=== PATIENT | male | born 1985 | race Caucasian/White ===

== ENCOUNTER 2019-05-27 07:35 | Outpatient (CLI) | payer MEDICAID ==
[2019-05-27 12:34] LABS: BASOPHILS % (AUTO) 0.5 %; EOSINOPHILS # (AUTO) 0.2 10^3/uL (0.0-0.7); EOSINOPHILS % (AUTO) 1.9 %; HGB - HEMOGLOBIN 15.4 g/dL (14.0-18.0); LYMPHOCYTES # (AUTO) 1.5 10^3/uL (1.5-3.5); LYMPHOCYTES % (AUTO) 18.3 %; MEAN CORPUSCULAR HEMOGLOBIN 29.3 pg (27.0-31.0); MEAN CORPUSCULAR HGB CONC 33.1 g/dL (32.0-36.0); MEAN CORPUSCULAR VOLUME 88.4 fL (80.0-94.0); MEAN PLATELET VOLUME 11.6 fL (7.4-11.4); MONOCYTES # (AUTO) 0.7 10^3/uL (0.0-1.0); MONOCYTES % (AUTO) 8.5 %; NEUTROPHILS # (AUTO) 5.9 10^3/uL (1.5-6.6); NEUTROPHILS % (AUTO) 70.4 %; PLT - PLATELET COUNT 209 10^3/uL (130-450); RED BLOOD COUNT 5.26 10^6/uL (4.70-6.10); RED CELL DISTRIBUTION WIDTH 12.1 % (12.0-15.0); WHITE BLOOD COUNT 8.3 x10^3/uL (4.8-10.8)
[2019-05-27 12:54] LABS: HB2 TOTAL 16.6 g/dL; HEMOGLOBIN A1C 0.54 g/dL; HEMOGLOBIN A1C % 5.1 % (4.6-6.2)
[2019-05-27 12:59] LABS: ALBUMIN 4.3 g/dL (3.2-5.5); ALBUMIN/GLOBULIN RATIO 1.3 (1.0-2.2); ALKALINE PHOSPHATASE 80 IU/L (42-121); ALT ALANINE AMINOTRANSFERASE 57 IU/L (10-60); AST ASPARTATE AMINOTRANSFERASE 25 IU/L (10-42); BUN - BLOOD UREA NITROGEN 13 mg/dL (6-20); CALCIUM 9.2 mg/dL (8.5-10.3); CARBON DIOXIDE - CO2 29 mmol/L (21-32); CHLORIDE 103 mmol/L (101-111); CHOL/HDL RATIO 5.4 (<5.0); CHOLESTEROL 167 mg/dL; GFR - MDRD 87 (>89); GLUCOSE 106 mg/dL (70-100); HDL CHOLESTEROL 31 mg/dL; SODIUM 140 mmol/L (135-145); TOTAL PROTEIN 7.6 g/dL (6.7-8.2); URIC ACID 7.1 mg/dL (2.6-7.2)
[2019-05-27 13:22] LABS: LDL CHOLESTEROL,DIRECT 80 mg/dL; LDLD/HDL RATIO 2.6 (<3.6)
== END 2019-05-27 23:59 | disposition home or self-care (01) ==
LOC: LAB.WCP 07:35
PROVIDERS: ATTEND Physician Assistant
DX: E78.5 Hyperlipidemia, unspecified (principal); Z13.1 Encounter for screening for diabetes mellitus; M10.9 Gout, unspecified
CPT/HCPCS: 36415; 80053; 80061; 83036; 83721; 84550; 85025

== ENCOUNTER 2020-01-06 18:41 | Emergency (ER) | payer MEDICAID ==
[2020-01-06] MEDS ORDERED: SODIUM CHLORIDE 0.9% 1,000 ML IV STA (20:07)
[2020-01-06 20:17] LABS: BASOPHILS # (AUTO) 0.1 10^3/uL (0.0-0.1); EOSINOPHILS # (AUTO) 0.2 10^3/uL (0.0-0.7); EOSINOPHILS % (AUTO) 2.4 %; HGB - HEMOGLOBIN 15.8 g/dL (14.0-18.0); LYMPHOCYTES # (AUTO) 3.6 10^3/uL (1.5-3.5); MEAN CORPUSCULAR HEMOGLOBIN 30.9 pg (27.0-31.0); MEAN CORPUSCULAR HGB CONC 35.3 g/dL (32.0-36.0); MEAN CORPUSCULAR VOLUME 87.5 fL (80.0-94.0); MEAN PLATELET VOLUME 10.2 fL (7.4-11.4); MONOCYTES # (AUTO) 0.6 10^3/uL (0.0-1.0); MONOCYTES % (AUTO) 6.4 %; NEUTROPHILS # (AUTO) 4.4 10^3/uL (1.5-6.6); NEUTROPHILS % (AUTO) 49.9 %; PLT - PLATELET COUNT 237 10^3/uL (130-450); RED BLOOD COUNT 5.11 10^6/uL (4.70-6.10); RED CELL DISTRIBUTION WIDTH 12.4 % (12.0-15.0); WHITE BLOOD COUNT 8.9 x10^3/uL (4.8-10.8)
--- NOTE | 2020-01-06 20:29 | XRAY Report ---
Reason: Chest Pain Procedure Date: 01/06/2020 Accession Number: [id number] / [id number] Procedure: XR - Chest 1 View X-Ray CPT Code: 39723 Final Report FULL RESULT: PROCEDURE: Chest 1 View X-Ray INDICATIONS: Chest Pain TECHNIQUE: One view of the chest was acquired. COMPARISON: None FINDINGS: Surgical changes and devices: None. Lungs and pleura: No pleural effusions or pneumothorax. Lungs are clear. Mediastinum: Mediastinal contours appear normal. Heart size is normal. Bones and chest wall: No suspicious bony lesions. Overlying soft tissues appear unremarkable. IMPRESSION: No acute pulmonary process. Reviewed by: Jenifer Chen MD on 01/06/2020 8:24 PM PDT Approved by: Jenifer Chen MD on 01/06/2020 8:24 PM PDT Station ID: [id number]
[2020-01-06 20:31] LABS: ALBUMIN/GLOBULIN RATIO 1.1 (1.0-2.2); BILIRUBIN,TOTAL 0.7 mg/dL (0.2-1.0); CALCIUM 8.9 mg/dL (8.5-10.3); TOTAL PROTEIN 7.5 g/dL (6.7-8.2)
--- NOTE | 2020-01-06 20:37 | ED Physician Documentation ---
History of Present Illness - Stated complaint Stated Complaint: SOA/DIZZY - Chief complaint Chief Complaint: Resp - History obtained from History obtained from: Patient - History of Present Illness Timing: How many weeks ago (1-2) Pain level max: 0 Pain level now: 0 - Additonal information Additional information: Patient is a 34-year-old male presents to the emergency department stating that he has had intermittent dyspnea for the past week or 2. This comes and goes. Last for a few minutes at a time. He also intermittently feels lightheaded and dizzy. No palpitations. No chest pain. Nothing makes it better or worse. No fevers. No coughing. No vomiting. No changes to his medications. No recent t ravel. No antibiotics. Review of Systems Ten Systems: 10 systems reviewed and negative Constitutional: denies: Fever, Chills Ears: denies: Ear pain Nose: denies: Rhinorrhea / runny nose, Congestion Cardiac: denies: Chest pain / pressure, Palpitations Respiratory: reports: Dyspnea. denies: Cough GI: denies: Vomiting, Diarrhea Skin: denies: Rash Musculoskeletal: denies: Neck pain, Back pain Neurologic: denies: Headache PD PAST MEDICAL HISTORY - Past Medical History Past Medical History: Yes Cardiovascular: High cholesterol - Past Surgical History Past Surgical History: No - Allergies Allergies/Adverse Reactions: Allergies Allergy/AdvReac Type Severity Reaction Status Date / Time meloxicam AdvReac Dizziness Verified 01/06/20 18:50 tramadol AdvReac Hallucinati Verified 01/06/20 18:50 ons - Social History Does the pt smoke?: No Smoking Status: Never smoker Does the pt drink ETOH?: No Does the pt have substance abuse?: No - Immunizations Immunizations are current?: Yes - POLST Patient has POLST: No PD ED PE NORMAL - Vitals Vital signs reviewed: Yes - General General: Alert and oriented X 3, No acute distress, Well developed/nourished - HEENT HEENT: PERRL, Moist mucous membranes - Neck Neck: Supple, no meningeal sign - Cardiac Cardiac: RRR, Strong equal pulses - Respiratory Respiratory: No respiratory distress, Clear bilaterally - Abdomen Abdomen: Soft, Non tender, Non distended - Back Back: No CVA TTP, No spinal TTP - Derm Derm: Warm and dry - Extremities Extremities: No edema, No calf tenderness / cord - Neuro Neuro: Alert and oriented X 3, 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, No motor deficit, No sensory deficit, Normal speech - Psych Psych: Normal mood, Normal affect Results - Vitals Vitals: Vital Signs - 24 hr 01/06/20 01/06/20 01/06/20 18:50 19:10 20:39 Temperature 36.5 C 36.5 C 36.6 C Heart Rate 91 91 84 Respiratory 16 16 12 Rate Blood Pressure 154/90 H 154/90 H 154/85 H O2 Saturation 96 96 100 Oxygen O2 Source Room air - EKG (time done) 2020 Rate: Rate (enter#) (90) Rhythm: NSR [place]: RAD Intervals: Normal [place] QRS: Normal Ischemia: Normal ST segments - Labs Labs: Laboratory Tests 01/06/20 01/06/20 01/06/20 20:11 20:11 20:11 WBC 8.9 RBC 5.11 Hgb 15.8 Hct 44.7 MCV 87.5 MCH 30.9 MCHC 35.3 RDW 12.4 Plt Count 237 MPV 10.2 Neut # (Auto) 4.4 Lymph # (Auto) 3.6 [place] # (Auto) 0.6 Eos # (Auto) 0.2 Baso # (Auto) 0.1 Absolute Nucleated RBC 0.00 Nucleated RBC % 0.0 Sodium 141 Potassium 3.7 Chloride 106 Carbon Dioxide 24 Anion Gap 11.0 BUN 14 Creatinine 1.0 Estimated GFR (MDRD) 86 L Glucose 123 H Calcium 8.9 Total Bilirubin 0.7 AST 35 ALT 77 H Alkaline Phosphatase 66 Troponin I High Sens 2.3 Total Protein 7.5 Albumin 4.0 Globulin 3.5 Albumin/Globulin Ratio 1.1 Lipase 33 - Rads (name of study) Chest x-ray Radiology: Prelim report reviewed, EMP read contemporaneously, See rad report (No acute disease) CT PA Radiology: Prelim report reviewed, EMP read contemporaneously, See rad report (No pulmonary embolus. Lungs are clear) PD MEDICAL DECISION MAKING - ED course Complexity details: reviewed results, re-evaluated patient, considered differential, d/w patient ED course: Unclear etiology of the patient's symptoms. He did have right ventricular hypertrophy on his EKG, therefore a CT was performed to exclude a pulmonary embolus. No acute findings on CT. No acute lab abnormalities. Normal lung exam. We will have him follow-up with his doctor for further care. Was could be contributed to something such as pulmonary hypertension. He likely has sleep apnea as well and that could be contributing to symptoms as well. Patient counseled regarding signs and symptoms for which I believe and urgent re- evaluation would be necessary. Patient with good understanding of and agreement to plan and is comfortable going home at this time This document was made in part using voice recognition software. While efforts are made to proofread this document, sound alike and grammatical errors may occur. Departure - Departure Disposition: 01 Home, Self Care Clinical Impression: Dizziness Dyspnea Qualifiers: Dyspnea type: unspecified Qualified Code(s): R06.00 - Dyspnea, unspecified Condition: Good Instructions: ED Dyspnea Shortness of Breath Follow-Up: Caitlin Martinez PA [Primary Care Provider] - Within 1 week Comments: The cause of your symptoms is unclear today. Follow-up with your doctor for further care. Your testing does not reveal any acute abnormalities today. You do have evidence of right ventricular hypertrophy on your EKG and this should be further evaluated with your doctor.
[2020-01-06] MEDS ORDERED: IOVERSOL 320 100 ML VIAL IVP ONE ×2 (20:44→22:23)
--- NOTE | 2020-01-06 22:20 | CT Report ---
Reason: dyspnea, rvh on ekg Procedure Date: 01/06/2020 Accession Number: [id number] / [id number] Procedure: CT - ANGIO CHEST W/WO CPT Code: Final Report FULL RESULT: PROCEDURE: ANGIO CHEST W/WO INDICATIONS: dyspnea, rvh on ekg CONTRAST: IV CONTRAST: Optiray 320 ml: 68 PO CONTRAST: *NO PO CONTRAST TECHNIQUE: Noncontrast 2 mm thick sections acquired from the pulmonary apices to the posterior costophrenic angles. After the administration of intravenous contrast, 2mm thick sections acquired from the pulmonary apices to the posterior costophrenic angles. Oblique images were acquired. For radiation dose reduction, the following was used: automated exposure control, adjustment of mA and/or kV according to patient size. COMPARISON: None. FINDINGS: Image quality: Suboptimal evaluation of distal pulmonary artery branches. Lungs and pleura: No acute air space opacities. No pleural effusions or pneumothorax. Central and peripheral airways are patent and normal in caliber. Pulmonary arteries: No central pulmonary embolism. Distal branches are suboptimally evaluated secondary to artifact an injection. Mediastinum: Heart size is normal. No pericardial effusion. No mediastinal or hilar adenopathy by size criteria. Thoracic aorta and central pulmonary arteries are normal in size. Esophagus is normal in caliber. Mild hiatal hernia. Bones and chest wall: No suspicious bony lesions. No vertebral body compression fractures. No axillary or supraclavicular adenopathy by size criteria. Thyroid gland . Abdomen: Visualized upper abdominal solid organs appear normal. Upper abdominal bowel loops are normal in caliber. IMPRESSION: 1. No pulmonary embolism. 2. Lungs are clear. Reviewed by: Jenifer Chen MD on 01/06/2020 10:16 PM PDT Approved by: Jenifer Chen MD on 01/06/2020 10:16 PM PDT Station ID: [id number]
[2020-01-06 22:31] VITALS: BP 145/96
== END 2020-01-06 22:32 | disposition home or self-care (01) ==
LOC: ED 18:41
DX: R06.02 Shortness of breath (principal); R42 Dizziness and giddiness; I51.7 Cardiomegaly
CPT/HCPCS: 36415; 71045; 71275; 80053; 83690; 84484; 85025; 93005; 96360; 99284; Q9967

== ENCOUNTER 2020-01-08 08:00 | Outpatient (CLI) | payer MEDICAID | END 2020-01-08 08:01 | disposition home or self-care (01) | LOC: LAB.R 08:00 | PROVIDERS: ATTEND Nurse Practitioner Family | DX: R05 Cough (principal); R06.02 Shortness of breath; Z20.828 Contact with and (suspected) exposure to other viral communicable diseases | CPT/HCPCS: 81599 ==

== ENCOUNTER 2020-01-08 15:48 | Emergency (ER) | payer MEDICAID ==
[2020-01-08 16:41] LABS: BASOPHILS # (AUTO) 0.1 10^3/uL (0.0-0.1); BASOPHILS % (AUTO) 0.7 %; EOSINOPHILS # (AUTO) 0.1 10^3/uL (0.0-0.7); EOSINOPHILS % (AUTO) 1.9 %; HGB - HEMOGLOBIN 15.6 g/dL (14.0-18.0); LYMPHOCYTES # (AUTO) 2.7 10^3/uL (1.5-3.5); LYMPHOCYTES % (AUTO) 36.4 %; MEAN CORPUSCULAR HEMOGLOBIN 30.8 pg (27.0-31.0); MEAN CORPUSCULAR HGB CONC 35.8 g/dL (32.0-36.0); MEAN PLATELET VOLUME 10.4 fL (7.4-11.4); MONOCYTES # (AUTO) 0.5 10^3/uL (0.0-1.0); MONOCYTES % (AUTO) 6.5 %; PLT - PLATELET COUNT 213 10^3/uL (130-450); RED BLOOD COUNT 5.07 10^6/uL (4.70-6.10); RED CELL DISTRIBUTION WIDTH 12.2 % (12.0-15.0); WHITE BLOOD COUNT 7.4 x10^3/uL (4.8-10.8)
[2020-01-08] MEDS: ALBUTEROL 1 PUFF INH STA (16:41)
--- NOTE | 2020-01-08 16:54 | XRAY Report ---
Reason: chest pain Procedure Date: 01/08/2020 Accession Number: [id number] / [id number] Procedure: XR - Chest 1 View X-Ray CPT Code: 75405 Final Report FULL RESULT: PROCEDURE: Chest 1 View X-Ray INDICATIONS: chest pain TECHNIQUE: One view of the chest was acquired. COMPARISON: None FINDINGS: Surgical changes and devices: None. Lungs and pleura: No pleural effusions or pneumothorax. Lungs are clear. Mediastinum: Mediastinal contours appear normal. Heart size is normal. Bones and chest wall: No suspicious bony lesions. Overlying soft tissues appear unremarkable. IMPRESSION: No acute cardiopulmonary pathology. Reviewed by: Jason Brady MD on 01/08/2020 4:53 PM PDT Approved by: Jason Brady MD on 01/08/2020 4:53 PM PDT Station ID: [id number]
[2020-01-08] MEDS: DEXAMETHASONE 10 MG/ML VIAL IVP STA (17:06)
--- NOTE | 2020-01-08 17:51 | ED Physician Documentation ---
PD HPI DYSPNEA - Stated complaint Stated Complaint: SOA - Chief complaint Chief Complaint: Resp - History obtained from History obtained from: Patient - History of Present Illness Timing - onset: How many weeks ago (1) Timing - onset during: Light activity Timing - duration: Weeks (1) Timing - details: Gradual onset, Waxing and waning Inciting event(s): No: URI (but has had some nasal congestion and dry cough. No fevers. No history of asthma.) Improved by: Rest Worsened by: Exertion, Coughing Associated symptoms: Cough. No: Fever, Hemoptysis, Wheezing, Bilateral edema Recently seen: Emergency Dept (seen couple days ago for this and had labs/CXR/CT chest angio that were normal. No firm Dx nor meds. Seen by PCP office today for persistent symptoms and seemed short of breath with cough in office. Sats okay but office called EMS for patient to be seen here. Swabbed for COVID in office today, though had normal chest CT 2 days ago, which is clinically more sensitive and conclusive against pneumonia.) Review of Systems Constitutional: reports: Fatigue. denies: Fever, Chills, Myalgias Nose: denies: Rhinorrhea / runny nose, Congestion Throat: denies: Sore throat Cardiac: denies: Chest pain / pressure, Palpitations Respiratory: reports: Dyspnea, Cough. denies: Wheezing GI: denies: Abdominal Pain, Nausea, Vomiting, Diarrhea Musculoskeletal: denies: Extremity swelling Endocrine: denies: Weight gain PD PAST MEDICAL HISTORY - Past Medical History Past Medical History: Yes Cardiovascular: High cholesterol Respiratory: None Neuro: None Endocrine/Autoimmune: None GI: None : None HEENT: None Psych: None Musculoskeletal: Gout Derm: Other drug resistant infections - Past Surgical History Past Surgical History: No - Present Medications Home Medications: Ambulatory Orders Medication Instructions Recorded Confirmed Albuterol Sulfate [Albuterol 3 puffs IH QID #1 hfa.aer.ad 01/08/20 Sulfate Hfa] Atorvastatin [Lipitor] 01/08/20 Benzonatate [Tessalon Perle] 100 mg PO TID PRN #25 capsule 01/08/20 Colchicine 01/08/20 dexAMETHasone [Decadron] 4 mg PO DAILY #5 tablet 01/08/20 - Allergies Allergies/Adverse Reactions: Allergies Allergy/AdvReac Type Severity Reaction Status Date / Time meloxicam AdvReac Dizziness Verified 01/08/20 16:02 tramadol AdvReac Hallucinati Verified 01/08/20 16:02 ons - Social History Does the pt smoke?: No Smoking Status: Never smoker Does the pt drink ETOH?: No Does the pt have substance abuse?: No - Immunizations Immunizations are current?: Yes - POLST Patient has POLST: No PD ED PE NORMAL - Vitals Vital signs reviewed: Yes (sats good at 95%.) - General General: Alert and oriented X 3, No acute distress, Well developed/nourished - HEENT HEENT: Moist mucous membranes, Pharynx benign - Neck Neck: Supple, no meningeal sign, No adenopathy - Cardiac Cardiac: RRR, No murmur - Respiratory Respiratory: Clear bilaterally - Abdomen Abdomen: Soft, Non tender - Derm Derm: Normal color, Warm and dry - Extremities Extremities: No edema, No calf tenderness / cord - Neuro Neuro: Alert and oriented X 3, No motor deficit, Normal speech Results - Vitals Vitals: Vital Signs - 24 hr 01/08/20 01/08/20 01/08/20 16:04 16:51 18:08 Temperature 37.2 C 36.8 C Heart Rate 90 100 97 Respiratory 18 18 14 Rate Blood Pressure 129/81 H 135/76 H O2 Saturation 95 97 Oxygen O2 Source Room air - Labs Labs: Laboratory Tests 01/08/20 01/08/20 01/08/20 16:33 16:33 16:33 WBC 7.4 RBC 5.07 Hgb 15.6 Hct 43.6 MCV 86.0 MCH 30.8 MCHC 35.8 RDW 12.2 Plt Count 213 MPV 10.4 Neut # (Auto) 4.0 Lymph # (Auto) 2.7 [place] # (Auto) 0.5 Eos # (Auto) 0.1 Baso # (Auto) 0.1 Absolute Nucleated RBC 0.00 Nucleated RBC % 0.0 Troponin I High Sens < 2.3 L B-Natriuretic Peptide 7 - Rads (name of study) chest xray Radiology: Prelim report reviewed (clear), See rad report PD MEDICAL DECISION MAKING - ED course Complexity details: reviewed old records (from recent visit), reviewed results, re-evaluated patient (he did feel moderately improved with Albuterol MDI. ), considered differential (given recent ER visit with labs, CXR, CT-A chest, and still normal labs/CXR, I would presume some reactive airways. ), d/w patient Departure - Departure Disposition: 01 Home, Self Care Clinical Impression: Dyspnea Qualifiers: Dyspnea type: dyspnea on exertion Qualified Code(s): R06.00 - Dyspnea, un specified Condition: Stable Record reviewed to determine appropriate education?: Yes Instructions: ED Dyspnea Shortness of Breath Follow-Up: Caitlin Martinez PA [Primary Care Provider] - Prescriptions: Albuterol Sulfate [Albuterol Sulfate Hfa] 3 puffs IH QID #1 hfa.aer.ad Benzonatate [Tessalon Perle] 100 mg PO TID PRN #25 capsule PRN Reason: Cough dexAMETHasone [Decadron] 4 mg PO DAILY #5 tablet Comments: Stay well-hydrated. Your chest x-ray is clear again and still. No signs of pneumonia. No signs of heart failure. This combined with the tests from the other night showing normal blood count and no signs of blood clots etc. are reassuring. I am thinking the trouble breathing is related to airway irritation or inflammation and we can try some albuterol inhaler 3 puffs 4 times a day for the next several days to week and Decadron steroid for airway inflammation daily for 5 more days. To that add benzonatate if needed for cough. Recheck if not improved well over the next several days and return if worsening. Discharge Date/Time: 01/08/20 18:15
[2020-01-08 18:15] VITALS: BP 135/76
== END 2020-01-08 18:15 | disposition home or self-care (01) ==
LOC: EDBD → EDUNIT# → ED 15:48
DX: R06.00 Dyspnea, unspecified (principal); R05 Cough; R06.02 Shortness of breath; Z20.828 Contact with and (suspected) exposure to other viral communicable diseases
CPT/HCPCS: 36415; 71045; 81599; 83880; 84484; 85025; 94640; 94664; 99284

== ENCOUNTER 2020-02-05 08:42 | Outpatient (CLI) | payer MEDICAID | END 2020-02-05 08:43 | disposition home or self-care (01) | LOC: DI 08:42 | PROVIDERS: ATTEND Nurse Practitioner Family | DX: I51.7 Cardiomegaly (principal) | CPT/HCPCS: 93306 ==

== ENCOUNTER 2020-02-11 12:34 | Emergency (ER) | payer MEDICAID ==
--- NOTE | 2020-02-11 13:56 | ED Physician Documentation ---
PD HPI CHEST PAIN - Stated complaint Stated Complaint: CP - Chief complaint Chief Complaint: Cardiac - History obtained from History obtained from: Patient - History of Present Illness Timing - onset: Other Timing - details: Abrupt onset, Intermittant Pain level max: 2 Pain level now: 1 Quality: Pressure, Sharp Location: Substernal Associated symptoms: No: Shortness of air, Diaphoresis Similar symptoms before: Work up / diagnostics Recently seen: Clinic, Emergency Dept - Additional information Additional information: 34-year-old male presents to the emergency department with chief complaint of chest pain. Patient reports that he has had intermittent chest pain for about 2 months. And has been seen in this emergency department for similar recently. Patient states that he has a sharp substernal pain that does not radiate. It has been present since he woke up this morning. He sometimes feels a squeezing in his right chest. He is not sure if it gets worse with activity or ambulation. He denies any dyspnea. Patient had an echocardiogram completed on 04 February that was essentially normal. He has a pending referral to cardiology for follow-up. Patient denies any history of hypertension. He is not a smoker or diabetic. No primary family disease for early or sudden cardiac or disease No recent travel, no unilateral leg swelling. No history of cancer or DVT. Past medical history includes vitamin D deficiency, elevated cholesterol. meds: atorvastatin Review of Systems Constitutional: denies: Fever, Chills Nose: denies: Rhinorrhea / runny nose Cardiac: reports: Chest pain / pressure. denies: Palpitations, Pedal edema, Calf pain Respiratory: denies: Dyspnea, Cough, Hemoptysis, Wheezing GI: denies: Abdominal Pain, Abdominal Swelling, Nausea, Vomiting Skin: denies: Rash, Lesions Musculoskeletal: denies: Neck pain, Back pain Neurologic: denies: Generalized weakness, Difficulty speaking, Syncope, Seizure, Confused, Altered mental status, Unresponsive Psychiatric: denies: Depressed, Suicidal PD PAST MEDICAL HISTORY - Past Medical History Past Medical History: Yes Cardiovascular: High cholesterol Respiratory: None Neuro: None Endocrine/Autoimmune: None GI: None : None HEENT: None Psych: None Musculoskeletal: Gout Derm: Other drug resistant infections - Past Surgical History Past Surgical History: No - Present Medications Home Medications: Ambulatory Orders Medication Instructions Recorded Confirmed Albuterol Sulfate [Albuterol 3 puffs IH QID #1 hfa.aer.ad 01/08/20 Sulfate Hfa] Atorvastatin [Lipitor] 01/08/20 Benzonatate [Tessalon Perle] 100 mg PO TID PRN #25 capsule 01/08/20 Colchicine 01/08/20 dexAMETHasone [Decadron] 4 mg PO DAILY #5 tablet 01/08/20 - Allergies Allergies/Adverse Reactions: Allergies Allergy/AdvReac Type Severity Reaction Status Date / Time meloxicam AdvReac Dizziness Verified 01/08/20 16:02 tramadol AdvReac Hallucinati Verified 01/08/20 16:02 ons - Social History Does the pt smoke?: No Smoking Status: Never smoker Does the pt drink ETOH?: No Does the pt have substance abuse?: No - Immunizations Immunizations are current?: Yes - POLST Patient has POLST: No PD ED PE NORMAL - General General: Alert and oriented X 3, No acute distress, Well developed/nourished, Other (obese) - HEENT HEENT: PERRL, EOMI - Neck Neck: No bony TTP, No adenopathy - Cardiac Cardiac: RRR, No murmur - Respiratory Respiratory: No respiratory distress, Clear bilaterally - Abdomen Abdomen: Normal bowel sounds, Non tender - Rectal Rectal: Deferred - Back Back: No CVA TTP, No spinal TTP - Derm Derm: Normal color, No rash - Extremities Extremities: No deformity, Normal ROM s pain - Neuro Neuro: Alert and oriented X 3, 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, No motor deficit, No sensory deficit, Normal speech Eye Opening: Spontaneous Motor: Obeys Commands Verbal: Oriented GCS Score: 15 Results - Vitals Vitals: Vital Signs - 24 hr 02/11/20 02/11/20 12:42 13:47 Temperature 36.6 C 36.8 C Heart Rate 95 112 H Respiratory 16 16 Rate Blood Pressure 152/94 H 133/104 H O2 Saturation 97 96 Oxygen O2 Source Room air - EKG (time done) 1241 Rate: Rate (enter#) (91) Rhythm: NSR [place]: Normal Intervals: Normal [place] QRS: Normal Ischemia: Normal ST segments Computer interpretation: Agree with computer (no STEMI) - Labs Labs: Laboratory Tests 02/11/20 02/11/20 02/11/20 13:57 13:57 13:57 WBC 6.8 RBC 5.25 Hgb 16.0 Hct 45.6 MCV 86.9 MCH 30.5 MCHC 35.1 RDW 12.5 Plt Count 246 MPV 10.1 Neut # (Auto) 3.2 Lymph # (Auto) 2.7 [place] # (Auto) 0.6 Eos # (Auto) 0.2 Baso # (Auto) 0.1 Absolute Nucleated RBC 0.00 Nucleated RBC % 0.0 Sodium 139 Potassium 4.1 Chloride 105 Carbon Dioxide 26 Anion Gap 8.0 BUN 11 Creatinine 0.9 Estimated GFR (MDRD) 97 Glucose 104 H Calcium 9.2 Total Bilirubin 0.8 AST 34 ALT 84 H Alkaline Phosphatase 72 Troponin I High Sens < 2.3 L Total Protein 7.5 Albumin 4.1 Globulin 3.4 Albumin/Globulin Ratio 1.2 Lipase 54 H - Rads (name of study) CXR Radiology: Final report received (No acute cardiopulmonary process) PD MEDICAL DECISION MAKING - ED course Complexity details: reviewed old records, reviewed results, re-evaluated patient, considered differential, d/w patient ED course: 34-year-old gentleman presents to the emergency department with chief complaint of chest pain. - Patient has been seen for this before. Approximately 1 week ago he had an echocardiogram completed that showed mild LVH however there were no worrisome findings to suggest congestive heart failure or poor ejection fraction. - He has a consult pending with cardiology. - Today his high-sensitivity troponin is negative. His EKG is also nonischemic. His MCCLELLAN score is very low for risk of major adverse cardiac event. I discussed these findings with the Patient and he feels ready for discharge home. - My suspicion for PE is extremely low. His PERC score is negative. His wells score is also negative - Patient discharged home with emergent return precautions Departure - Departure Disposition: 01 Home, Self Care Clinical Impression: Chest pain Qualifiers: Chest pain type: unspecified Qualified Code(s): R07.9 - Chest pain, unspecified Condition: Stable Instructions: ED Chest Pain NonCardiac Follow-Up: Caitlin Martinez PA [Primary Care Provider] - Comments: Your cardiac labs today are normal. Your chest x-ray and EKG look good. I do not think that you are having a heart attack. However I do think it is important that you continue to follow-up with a digital project coordinator that you have been referred to. If you develop suddenly severe crushing chest pain, have any fevers, cannot breathe well, or any other emergent concerns please return to the emergency department.
--- NOTE | 2020-02-11 13:59 | XRAY Report ---
PROCEDURE: Chest 1 View X-Ray INDICATIONS: Chest pain TECHNIQUE: One view of the chest was acquired. COMPARISON: 01/08/2020 FINDINGS: Surgical changes and devices: None. Lungs and pleura: No pleural effusions or pneumothorax. Lungs are clear. Mediastinum: Mediastinal contours appear normal. Heart size is normal. Bones and chest wall: No suspicious bony lesions. Overlying soft tissues appear unremarkable. IMPRESSION: No acute cardiopulmonary disease process. Reviewed by: Felicia Terrell MD, PhD on 02/11/2020 1:58 PM PDT Approved by: Felicia Terrell MD, PhD on 02/11/2020 1:58 PM PDT Station ID: [id number]
[2020-02-11 14:02] LABS: BASOPHILS # (AUTO) 0.1 10^3/uL (0.0-0.1); BASOPHILS % (AUTO) 1.2 %; EOSINOPHILS # (AUTO) 0.2 10^3/uL (0.0-0.7); EOSINOPHILS % (AUTO) 2.7 %; LYMPHOCYTES # (AUTO) 2.7 10^3/uL (1.5-3.5); MEAN CORPUSCULAR HEMOGLOBIN 30.5 pg (27.0-31.0); MEAN CORPUSCULAR HGB CONC 35.1 g/dL (32.0-36.0); MEAN CORPUSCULAR VOLUME 86.9 fL (80.0-94.0); MEAN PLATELET VOLUME 10.1 fL (7.4-11.4); MONOCYTES # (AUTO) 0.6 10^3/uL (0.0-1.0); MONOCYTES % (AUTO) 8.6 %; NEUTROPHILS # (AUTO) 3.2 10^3/uL (1.5-6.6); NEUTROPHILS % (AUTO) 47.1 %; PLT - PLATELET COUNT 246 10^3/uL (130-450); RED BLOOD COUNT 5.25 10^6/uL (4.70-6.10); RED CELL DISTRIBUTION WIDTH 12.5 % (12.0-15.0); WHITE BLOOD COUNT 6.8 x10^3/uL (4.8-10.8)
[2020-02-11 14:15] LABS: ALBUMIN 4.1 g/dL (3.2-5.5); ALBUMIN/GLOBULIN RATIO 1.2 (1.0-2.2); BILIRUBIN,TOTAL 0.8 mg/dL (0.2-1.0); CALCIUM 9.2 mg/dL (8.5-10.3); CREATININE 0.9 mg/dL (0.6-1.2); TOTAL PROTEIN 7.5 g/dL (6.7-8.2)
[2020-02-11 15:17] VITALS: BP 126/93
== END 2020-02-11 15:18 | disposition home or self-care (01) ==
LOC: ED 12:34
DX: R07.9 Chest pain, unspecified (principal)
CPT/HCPCS: 36415; 71045; 80053; 83690; 84484; 85025; 93005; 99284

== ENCOUNTER 2020-02-12 08:49 | Outpatient (CLI) | payer MEDICAID ==
[2020-02-12 09:44] VITALS: BP 130/90
--- NOTE | 2020-02-12 09:44 | SLEEP CARE CONSULTATION ---
Information from patient questionnaire entered by Kasey Stone. I have reviewed and concur with the information entered by Kasey Stone. This document represents the service I personally performed and the decisions made by me, Morenita Kirkpatrick RN, MSN, [employer]. History of Present Illness Service Date and Time: 02/12/2020 0849 Reason for Visit: New patient, Other (diagnosed with mild apnea about 2 years ago in [facility]. He used CPAP for one year until it broke and thus disposed. He felt more rested with more energy during the day with CPAP use. ) Chief Complaint: reports: Unrefreshed sleep, Snoring, Excessive daytime sleepiness, Fatigue, Other (Sleep Apnea) Duration of Symptoms: 2 years Usual bedtime: 2200 Time it takes to fall asleep: 5 minutes Snores at night: Yes Observed to quit breathing while asleep: No Sleeps alone due to snoring: No Number of times waking at night: 3-5 Reasons for waking at night: reports: Gasping for air, Pain (lower back from spinal stenosis - plan is weight loss. ), Bathroom, Other (chest pain with fast heart rate recently started about a month ago/ nightly and has been to ER- enlarged left atrium - referral to cardiolgist) Toss, Turn, or Twitch while sleeping: No Recalls having dreams: No Usually gets out of bed at: 0800 Feels refreshed in the morning: No Morning headache: No Sleepy or fatigued during the day: Yes Ever fallen asleep while driving: No Takes day naps: Yes (daily for 2-4 hours the past month ) Dreams during day naps: No Prior sleep studies: Yes [facility] and Where: [facility] [place] Parasomnia Symptoms Ever been unable to move upon waking from sleep: No Walks in sleep: No Talks in sleep: No Ever acted out dreams in sleep: No Ever felt weak in the knees when startled or emotional: No Bothered by creepy, crawly, restless sensations in legs: No Problems with memory or concentration: Yes (noted decreased in past 2 years) Subjective Initial [place] Sleepiness Scale score: 8 Past Medical History Past Medical History: reports: Gout, Attention deficit, Other (spinal stenosis, high cholesterol, recent chest pain, dyspnea with enlarged atrium diagnosed past month) Social History 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 Patient is and lives in [place]. Have you smoked in the past 12 months: No Alcohol use: No Caffeine use: No Family History Family history of sleep disordered breathing: Yes Family Hx Sleep Apnea: Mother: Snoring, Father: Snoring Allergies and Home Medications Known drug allergies: Yes (see list ) Home medication list reviewed: Yes Allergy and home medication list: atorvastatin daily vitamin D 10,000 daily Calcium daily Iron 1 daily Review of Systems Weight gain over past 5 years: 50 Cardiovascular: reports: chest pain. denies: high blood pressure, palpitations, irregular heart rate or pulse, leg or foot swelling, have to sleep sitting up, other Respiratory: reports: shortness of breath. denies: wheeze, sputum production, chronic cough, other Gastrointestinal: denies: heartburn, difficulty swallowing, nausea, vomitting, diarrhea, abdominal pain, other Urinary: denies: incontinence, frequency, urgency, impotence, other Neurological: denies: headaches, seizure, head trauma, disorientation, speech dysfunction, gait or balance problems, fainting or unconsciousness, other Psychiatric: reports: Attention Deficit Hyperactivity, depression (past - no thoughts of hurting self or others) Ear/Nose/Throat: denies: nasal congestion, sinus problems, nose bleeds, dry mouth/throat, hoarseness, injury to nose, tonsillectomy, wisdom teeth removed, other Endocrine: denies: thyroid disease, history of goiter, sluggishness, too hot or cold, excessive thirst, increased appetite, increased urination, unexplained weakness, other Musculoskeletal: reports: back pain (daily). denies: joint pain, neck pain, joint swelling, muscle pain or cramping, mobility problems, other Immunologic: denies: sneezing, rash, itching, allergies to food or environment, other Physical Exam Blood Pressure: 130/90 Cuff size: long Heart Rate: 86 O2 Saturation: 95 Height: 6 ft 0.75 in Weight: 302 lb 12.8 oz Body Mass Index: 40.2 BMI Classification: Morbidly Obese Neck circumference: 19 HEENT: No craniofacial malformation Nostrils: patent to airflow Turbinates: normal Septum: midline Mouth and throat: narrow oropharynx Soft palate: long Hard palate: normal Uvula: normal Uvula visualization: 25% Mallampati Class III Tongue: normal in size Tonsils: small Neck: normal w/o lymphadenopathy or thyromegaly (thick neck ) Heart: regular rate and rhythm Lungs: clear bilaterally Abdomen: soft (large), non-tender Extremities: no edema or clubbing Impression and Plan 1. Suspected Obstructive Sleep Apnea-Hypopnea Syndrome, as previously diagnosed currently not treated due to CPAP malfunction a year ago and then disposed of. When he used CPAP for the first year he felt more rested with more energy during the day. Since machine broke, he has gained 20 pounds and symptoms became worse. Current history of loud and irregular snoring, gasping or choking in sleep, waking to chest pain and with gasping of breath nightly past month, unrefreshed sleep, cognitive impairment, and excessive daytime sleepiness. Narrow oropharynx and obesity are common predisposing factors for obstructive sleep apnea-hypopnea syndrome. I recommend proceeding to polysomnography to confirm the diagnosis and to assess severity or home sleep study if only authorized by his insurance. If the patient has significant sleep disordered breathing, a manual CPAP titration study will also be performed to find the optimal treatment pressure. I informed the patient of what the sleep studies involve and after some discussion, obtained agreement to proceed. The pathophysiology of obstructive sleep apnea- hypopnea syndrome was discussed with the patient and health risks of cardiovascular and cerebrovascular disease if not treated. Risks of drowsy driving discussed in detail and patient advised to avoid long distance driving and to hide puller at the first sign of drowsiness. Patient agreed to plan. He denies drowsy driving. * Schedule polysomnography * Avoid long distance driving or driving when feeling sleepy. * Avoid alcohol, sedative and muscle relaxant around bedtime. * Attempt to lose weight. * Review instructions provided by trained office staff on how to prepare for the sleep study. * Return for follow-up after sleep study completed. Visit Type: In Office Time Spent with Patient (minutes): 35 Provider Statement: I spent 100% of the Face to Face Visit with the patient with greater than 50% spent counseling the patient and coordination of care.
== END 2020-02-12 08:50 | disposition home or self-care (01) ==
LOC: SC 08:49
PROVIDERS: ATTEND Nurse Practitioner Family
DX: G47.10 Hypersomnia, unspecified (principal); G47.8 Other sleep disorders; R53.83 Other fatigue; R41.89 Other symptoms and signs involving cognitive functions and awareness; E66.01 Morbid (severe) obesity due to excess calories; Z68.41 Body mass index [BMI] 40.0-44.9, adult
CPT/HCPCS: 99203; 99212

== ENCOUNTER 2020-03-03 09:05 | Outpatient (CLI) | payer MEDICAID | END 2020-03-03 09:06 | disposition home or self-care (01) | LOC: RT 09:05 | PROVIDERS: ATTEND Nurse Practitioner Family | DX: R06.02 Shortness of breath (principal) | CPT/HCPCS: 94010 ==

== ENCOUNTER 2020-03-17 12:14 | Outpatient (CLI) | payer MEDICAID ==
--- NOTE | 2020-03-18 15:32 | XRAY Report ---
PROCEDURE: Finger(s) BILAT INDICATIONS: BILATERAL THUMB PAIN TECHNIQUE: AP hand, 3 views of the bilateral finger(s) acquired. COMPARISON: None FINDINGS: Bones: No fractures or dislocations. No suspicious bony lesions. Soft tissues: No suspicious soft tissue calcifications. IMPRESSION: No acute osseous process. No appreciable degenerative change. Reviewed by: Jenifer Chen MD on 03/17/2020 4:00 PM PDT Approved by: Jenifer Chen MD on 03/17/2020 4:00 PM PDT Station ID: [id number]
== END 2020-03-17 12:15 | disposition home or self-care (01) ==
LOC: DI.WCP 12:14
PROVIDERS: ATTEND Physician Assistant
DX: M79.645 Pain in left finger(s) (principal); M79.644 Pain in right finger(s)
CPT/HCPCS: 73140

== ENCOUNTER → 2020-03-23 | Outpatient (CLI) | payer MEDICAID | LOC: SC 19:30 | PROVIDERS: ATTEND Internal Medicine Pulmonary Disease | DX: G47.33 Obstructive sleep apnea (adult) (pediatric) (principal); E66.01 Morbid (severe) obesity due to excess calories; Z68.39 Body mass index [BMI] 39.0-39.9, adult | CPT/HCPCS: 95806 ==

== ENCOUNTER 2020-04-08 10:25 | Outpatient (CLI) | payer MEDICAID ==
--- NOTE | 2020-04-08 10:52 | SLEEP CARE CONSULTATION ---
Information from patient questionnaire entered by Lilibeth Dodson. I have reviewed and concur with the information entered by Lilibeth Dodson. This document represents the service I personally performed and the decisions made by , Kendra Lombardo ARNP. History of Present Illness Service Date and Time: 04/08/2020 1025 Initial [place] Sleepiness Scale score: 8 (in 2020) Current [place] Sleepiness Scale score: 12 Additional HPI information: EFREN SANZ returns for follow up and results of the recently performed home sleep study. He has very severe obstructive sleep apnea with an AHI of 81.9 with a zachary oxygen saturation of 84.5%. Patient has had previous study and did use CPAP therapy up until 1 year ago when he lost his machine while moving. We had to repeat sleep study for verification of his diagnosis and severity. We reviewed the pathophysiology behind obstructive sleep apnea. We then spent quite a bit of time discussing different treatment options. For mild obstructive sleep apnea, surgery and oral appliance are alternatives to nasal CPAP therapy but in moderate or severe cases, nasal CPAP is the most effective and reliable treatment. After some discussion, the patient opted to go with the nasal CPAP therapy. Nasal autoCPAP set at 4-16 cmH20 will be ordered with rationale explained. A manual titration study will be ordered if unable to find optimal pressure with office adjustments. I explained how CPAP machine works with sample devices [employer] Dream[employer] and [employer] [id number] and what to expect when using the machine. Using CPAP every night in order to get used to it was emphasized. Patient advised to put CPAP mask on before getting into bed so as not to fall asleep without CPAP. To assist acclimation to CPAP use, it could also be used for a short time during day while reading or watching TV. The patient was instructed to call the CPAP supplier to discuss any mechanical problem that may occur. If the mask given is uncomfortable or is difficult to keep on through the night even with adjustment, contact the CPAP supplier as many will replace with another mask style if notified before 30 days. If snoring or perceives is not getting enough air or too much air from the machine, notify this office. AAS patient education PAP tips reviewed and given to patient. Patient counseled not drink alcohol less than 4 hours before bedtime as it can increase snoring and apnea. Patient was cautioned about risks of drowsy driving until sleepiness symptoms resolve. Sleep Study - Results Type of Sleep Study: Home sleep study Prior sleep studies: Yes Year and Where: [place] Polysomnography/Home Sleep Study results: SLEEP TIME AND EFFICIENCY: The sleep study recording began at 11:04:00 PM and ended at 07:37:52 AM. Total recording time was 513.9 minutes. The total sleep time was 447.0 minutes. The sleep efficiency was 87.0 percent. The patient spent 154.1 minutes supine, and spent 292.9 minutes non-supine. The patients own estimate of sleep time was 8.60 hours. RESPIRATORY DATA: The AHI in this report is indexed to sleep time based on actigraphy. The AASM defines this as JOHNSON. The AHI on this type 3 Home Sleep Study may understate the AHI determined on a type 1 or 2 study, since EEG is not monitored resulting in the inability to score non-desaturating hypopneas. Based on 4% Calculation: The AHI4% calculation of 81.9 per hour of recording time was based on a total of 590 scored apneas and 20 scored hypopneas with 4% desaturations. Supine AHI4%: 128.1 per hour. Non-supine AHI4%: 57.4 per hour. Oxygen Summary: Patient's baseline O2 saturation was 96.9 %. The patient spent 3.7 minutes at an oxygen saturation less than 90%, and 0.0 minutes less than 85%. The desaturation index was 35.8 events per hour sleep time. The lowest saturation was 84.5 %. SNORING: The percent of the study time spent snoring was 1.4 %. The Snoring Count was 233 . The Snoring Index was 31.3 . PULSE RATE REVIEW: The mean heart rate was 67 beats per minute. The rate ranged from a low of 30 to a high of 117 beats per minute. DIAGNOSIS CODE: Severe obstructive sleep apnea G47.33 with mild hypoxia. Allergies and Home Medications Drug allergies reviewed: Yes (meloxicam, tramadol) Home medication list reviewed: Yes (no changes) Review of Systems Review of systems same as previous: Yes (no changes) Physical Exam Heart Rate: 76 O2 Saturation: 98 Height: 6 ft 0.75 in Weight: 306 lb Body Mass Index: 40.6 BMI Classification: Morbidly Obese Impression and Plan 1. Obstructive Sleep Apnea-Hypopnea Syndrome, very severe, with lowest oxygen saturation of 84.5. Obviously this is the cause of the patients symptoms of unrefreshed sleep, and excessive daytime sleepiness. Patient has history of CPAP use and thinks his pressures were set at 6-16 cm H2O. As mentioned above, the patient will be started on nasal autoCPAP therapy with pressure set at 4-16 cmH2O. Compliance guidelines also reviewed. A copy of compliance guidelines will be given for reference at check out. Because the apnea is more severe supine, I instructed to avoid sleeping supine using pillow positioning until able to start CPAP use. * Nasal auto CPAP therapy, pressure at 4-16 cm H2O. * Attempt to lose weight. * Avoid alcohol consumption near bedtime. * Avoid supine sleep until using CPAP. * The patient is again cautioned about driving until sleepiness completely resolves. * Return one month after CPAP obtained. I will assess response to therapy and compliance at that time. Visit Type: In Office Time Spent with Patient (minutes): 15 Provider Statement: I spent 100% of the Face to Face Visit with the patient with greater than 50% spent counseling the patient and coordination of care.
== END 2020-04-08 10:26 | disposition home or self-care (01) ==
LOC: SC 10:25
PROVIDERS: ATTEND Nurse Practitioner Family
DX: G47.33 Obstructive sleep apnea (adult) (pediatric) (principal); E66.01 Morbid (severe) obesity due to excess calories; Z68.41 Body mass index [BMI] 40.0-44.9, adult
CPT/HCPCS: 99212; 99213

== ENCOUNTER 2020-06-04 15:36 | Outpatient (CLI) | payer MEDICAID ==
--- NOTE | 2020-06-04 13:21 | SLEEP CARE CONSULTATION ---
Information from patient questionnaire entered by Kasey Stone. I have reviewed and concur with the information entered by Kasey Stone. This document represents the service I personally performed and the decisions made by , Kendra Lombardo ARNP. History of Present Illness Service Date and Time: 06/04/2020 1536 Previous diagnosis: Very Severe, Obstructive Sleep Apnea-Hypopnea Syndrome AHI: 81.9 Reason for follow up: first compliance (set up 04/30/20) Equipment type: CPAP Equipment obtained from: Other ([employer]) Mask style: Full face Mask brand: Respironics Backup mask available: Yes (other nasal mask) Last cushion change: 3 weeks Prior sleep studies: Yes Year and Where: 03/2020 [facility] [place] Type of Sleep Study: Home sleep study HPI additional information: EFREN SANZ was diagnosed to have very severe, AHI 81.9, obstructive sleep apnea-hypopnea syndrome and returns via Telehealth video today for CPAP therapy first compliance follow-up. Sleep Study - Results Prior sleep studies: Yes Year and Where: [facility] [place] CPAP Compliance Data - Data Reviewed with Patient Average duration of nightly device use: 7 hours 39 minutes Compliance rate %: 93 Current pressure setting (cmH2O): 4-16 (median 10.3 cm H2O, 95th 14.5 cm H2O and max 15.4 cm H2O) Average residual AHI: 0.9 Central apnea: 0.0 Obstructive apnea: 0.3 Average large leak: 13.5 L/min Subjective Patient concerns: reports: air blowing in eyes (adjusting helps), nasal congestion (uses Flonase prior to sleeping, helps with congestion), epistaxis (had one, but he increased his humidity and no reoccurences). denies: aerophagia, mask discomfort, mask leak noise, condensation in mask/hose, dry mouth, nose, throat, other Observed to snore while using device: No Current pressure setting perceived as: comfortable On therapy, patient: reports: sleeping better, awakening more refreshed, more rested overall. denies: being more awake and alert during the day, drowsiness while driving Initial [place] Sleepiness Scale score: 8 (in 2019) Current [place] Sleepiness Scale score: 11 Allergies and Home Medications Drug allergies reviewed: Yes (tramadol, meloxicam) Home medication list reviewed: Yes (no changes) Review of Systems Review of systems same as previous: Yes (no changes) Physical Exam Vital signs obtained and entered by: Telehealth visit, no vitals obtained Height: 6 ft 0.75 in Impression and Plan 1. Obstructive Sleep Apnea-Hypopnea Syndrome, very severe, with very good treatment compliance and great apnea control. On CPAP therapy, the patient has better sleep quality and is more rested overall. He has had some oral dryness and one epistaxis episode that has reduced with raising the humidity. Oral dryness can be reduced by adjusting humidity setting higher or heated hose lower or by adjusting both settings. Oral dryness can also be reduced by reducing mask leaks. Patient advised to try and keep walters cut low to reduce mask leaking from not getting a good seal. 2. Obesity, unspecified. Patients current BMI is 40.6. He is trying to lose weight. Obesity increases the risk of apnea, CPAP pressure requirements and overall health risks especially cardiovascular and diabetes. Thus patient is advised to continue to lose weight. Weight loss can be done with reducing portion size, reducing refined foods and balancing content with vegetables, fruit and protein. The patient's CPAP pressure range should accommodate some weight loss. Symptoms to report for additional pressure adjustment discussed. Patient's apnea severity and rationale for treatment to reduce apnea, improve sleep quality and reduce cardiovascular and cerebrovascular events was reviewed. I also reviewed the benefit of consistent device use of CPAP for cardiac disease, gout and Attention Deficit. * Changeauto CPAP pressure to 10-16 cmH2O * Notify me if snoring with mask or feeling that the pressure is too much or too little * Continue to attempt to lose weight * Call this office if any problems using CPAP * Return for follow up in 1-2 months, or sooner if concerns arise Counseling Topics: Spare mask, Weight loss health impact Visit Type: Telehealth Video Video Type: Doximity Patient Location: Home Location of Provider: Home Patient agrees and consents to this telehealth visit type: Yes Patient agrees to have their insurance billed: Yes Time Spent with Patient (minutes): 17 Provider Statement: I spent 100% of the Telehealth Video Call with the patient with greater than 50% spent counseling the patient and coordination of care.
== END 2020-06-04 15:37 | disposition home or self-care (01) ==
LOC: SC 15:36
PROVIDERS: ATTEND Nurse Practitioner Family
DX: G47.33 Obstructive sleep apnea (adult) (pediatric) (principal); E66.9 Obesity, unspecified; Z68.41 Body mass index [BMI] 40.0-44.9, adult

== ENCOUNTER 2020-07-15 10:03 | Outpatient (CLI) | payer MEDICAID ==
--- NOTE | 2020-07-15 09:42 | SLEEP CARE CONSULTATION ---
Information from patient questionnaire entered by Lilibeth Dodson. I have reviewed and concur with the information entered by Lilibeth Dodson. This document represents the service I personally performed and the decisions made by me, Morenita Kirkpatrick, RN, MSN, [employer]. History of Present Illness Service Date and Time: 07/15/2020 0900 Previous diagnosis: Very Severe, Obstructive Sleep Apnea-Hypopnea Syndrome AHI: 81.9 (in 2018) Reason for follow up: one month (pressure change) Equipment type: CPAP Equipment obtained from: Other ([employer] - getting supplies) Mask style: Nasal Backup mask available: Yes (full face mask) Last cushion change: not since set up Prior sleep studies: Yes Year and Where: 2018 - [facility] [place], [place] Type of Sleep Study: Home sleep study CPAP Compliance Data - Data Reviewed with Patient Average duration of nightly device use: 8 hr 6 min Compliance rate %: 93 Current pressure setting (cmH2O): 10-16 Humidity settin Heated hose settin degrees Average residual AHI: 0.4 (95th% pressure 13.3 cmH20) Subjective Patient concerns: denies: aerophagia, mask discomfort, air blowing in eyes, mask leak noise, condensation in mask/hose, nasal congestion, dry mouth, nose, throat, epistaxis, other Observed to snore while using device: Yes (sometimes ) Current pressure setting perceived as: comfortable On therapy, patient: reports: sleeping better, awakening more refreshed, being more awake and alert during the day, more rested overall. denies: drowsiness while driving Initial [place] Sleepiness Scale score: 8 (in 2019) Current [place] Sleepiness Scale score: 9 Allergies and Home Medications Drug allergies reviewed: Yes (see list) Home medication list reviewed: Yes (no changes ) Review of Systems Review of systems same as previous: No Physical Exam Height: 6 ft 0.75 in Weight: 309 lb (home weight) Body Mass Index: 41.0 BMI Classification: Morbidly Obese Impression and Plan 1. Obstructive Sleep Apnea-Hypopnea Syndrome, very severe, with good treatment compliance and good apnea control. On CPAP therapy, the patient has better sleep quality and is more rested overall. However, patient is still requiring intermittent naps and [place] is same. He undergoing more tests with his cardiac work up to further evaluate his fatigue. He reports that his sleep schedule is regular with 1-2 hours naps in afternoon. To resolve snore, the CPAP pressure will be changed to 12-16 cmH20. Patient advised to contact this office if pressure change uncomfortable or if pressure change does not resolve snore. Since patient is trying to lose weight, I discussed symptoms to report if pressure needs to be reduced from weight loss. New pressure range should accommodate some weight loss. However, patient also states he has been struggling to lose weight for some time. Currently patients BMI is 40.6 obesity class . I reviewed how obesity increases the risk of apnea, CPAP pressure requirements and overall health risks especially cardiovascular and diabetes. Weight loss can be done with reducing portion size, reducing refined foods and balancing content with vegetables, fruit and protein. I explained how a diet consultation can be helpful in achieving optimal weight loss goals. Patient encouraged to discuss their weight loss goals with their PCP and consider a referral to a route salesman and driver. Patient agreed with plan. Patient aware of how to adjust humidity and heated hose and was advised of benefit of increased humidity if nasal congestion. Also if needed, he can use his full face mask if nasal congestion makes it difficult to breath through his nose. Patient's apnea karyn rity and rationale for treatment to reduce apnea, improve sleep quality and reduce cardiovascular and cerebrovascular events was reviewed. * * Changeauto CPAP pressure to 12-16 cmH2O * Notify me if snoring with mask or feeling that the pressure is too much or too little * Attempt to lose weight * Discuss diet consultation with PCP * Call this office if any problems using CPAP * Return for follow up in 3 months , or sooner if concerns arise Counseling Topics: Spare mask, Weight loss health impact, Discuss weight with PCP Visit Type: Telehealth Video Video Type: Doxjordy Patient Location: Home Location of Provider: Home Patient agrees and consents to this telehealth visit type: Yes Patient agrees to have their insurance billed: Yes Time Spent with Patient (minutes): 20 Provider Statement: I spent 100% of the Telehealth Video Call with the patient with greater than 50% spent counseling the patient and coordination of care.
== END 2020-07-15 10:04 | disposition home or self-care (01) ==
LOC: SC 10:03
PROVIDERS: ATTEND Nurse Practitioner Family
DX: G47.33 Obstructive sleep apnea (adult) (pediatric) (principal); E66.01 Morbid (severe) obesity due to excess calories; Z68.41 Body mass index [BMI] 40.0-44.9, adult

== ENCOUNTER 2020-07-29 13:43 | Outpatient (CLI) | payer MEDICAID ==
--- NOTE | 2020-07-29 14:09 | XRAY Report ---
PROCEDURE: Tib/Fib LT INDICATIONS: CONTUSION OF L LOWER LEG FROM KICK TO TIBIA TECHNIQUE: 2 views of the tibia and fibula were acquired. COMPARISON: None FINDINGS: Bones: No fractures or dislocations. No suspicious bony lesions. Soft tissues: No suspicious soft tissue calcifications or masses. IMPRESSION: Normal left tibia/fibula Reviewed by: Chi Garibay on 07/29/2020 2:07 PM PST Approved by: Chi Garibay on 07/29/2020 2:07 PM PST Station ID: [id number]
== END 2020-07-29 23:59 | disposition home or self-care (01) ==
LOC: DI.N 13:43
PROVIDERS: ATTEND Family Medicine
DX: S80.12XA Contusion of left lower leg, initial encounter (principal)

== ENCOUNTER 2020-08-09 13:00 | Outpatient (CLI) | payer MEDICAID | END 2020-08-09 23:59 | disposition home or self-care (01) | LOC: LAB.R 13:00 | PROVIDERS: ATTEND Family Medicine | DX: R05 Cough (principal); Z20.822 Contact with and (suspected) exposure to COVID-19 | CPT/HCPCS: 87275; 87276 ==

== ENCOUNTER 2020-08-15 19:09 | Emergency (ER) | payer MEDICAID ==
[2020-08-15 19:17] VITALS: BP 165/100
--- NOTE | 2020-08-15 19:31 | ED Physician Documentation ---
History of Present Illness - Stated complaint Stated Complaint: L EAR PX - Chief complaint Chief Complaint: Heent - History obtained from History obtained from: Patient - History of Present Illness Timing: How many weeks ago (1) Pain level max: 5 Pain level now: 5 - Additonal information Additional information: 34-year-old male presents to the emergency department with continued left ear pain. He was diagnosed with a left acute otitis media by his doctor about 1 week ago. Has been on Augmentin since that time. States the pain is worsening. No drainage from the ear. No fever. No rhinorrhea or congestion. Nothing makes it better or worse. Review of Systems Constitutional: denies: Fever, Chills Respiratory: denies: Cough GI: denies: Vomiting, Diarrhea Skin: denies: Rash Musculoskeletal: denies: Neck pain, Back pain Neurologic: denies: Headache PD PAST MEDICAL HISTORY - Past Medical History Cardiovascular: High cholesterol Respiratory: None Neuro: None Endocrine/Autoimmune: None GI: None : None HEENT: None Psych: None Musculoskeletal: Gout Derm: Other drug resistant infections - Past Surgical History Past Surgical History: No - Present Medications Home Medications: Ambulatory Orders Medication Instructions Recorded Confirmed Atorvastatin [Lipitor] 10 mg PO DAILY 01/08/20 08/15/20 Ciproflox/Dexameth Otic Drops 4 drops OT BID 7 Days #1 bottle 08/15/20 [Ciprodex] Cyclobenzaprine [Flexeril] 10 mg PO DAILY PRN 08/15/20 08/15/20 Montelukast Sodium [Singulair] 5 mg PO DAILY 08/15/20 08/15/20 Vitamin D3/Folic Acid [Dermacinrx 10,000 unit PO DAILY 08/15/20 08/15/20 Folixapure Tablet] traZODone [Desyrel] 25 mg PO DAILY PRN 08/15/20 08/15/20 - Allergies Allergies/Adverse Reactions: Allergies Allergy/AdvReac Type Severity Reaction Status Date / Time meloxicam AdvReac Dizziness Verified 08/15/20 19:12 tramadol AdvReac Hallucinati Verified 08/15/20 19:12 ons - Social History Does the pt smoke?: No Smoking Status: Never smoker Does the pt drink ETOH?: No Does the pt have substance abuse?: No - Immunizations Immunizations are current?: Yes - POLST Patient has POLST: No PD ED PE NORMAL - Vitals Vital signs reviewed: Yes - General General: Alert and oriented X 3, No acute distress - HEENT HEENT: Moist mucous membranes, Other (B TM are normal. The left ear canal is erythematous, cracked skin, swollen. No mastoid tenderness) - Neck Neck: Supple, no meningeal sign - Derm Derm: Warm and dry - Neuro Neuro: Alert and oriented X 3 - Psych Psych: Normal mood, Normal affect Results - Vitals Vitals: Vital Signs - 24 hr 08/15/20 19:15 Temperature 36.9 C Heart Rate 80 Respiratory 18 Rate Blood Pressure 165/100 H O2 Saturation 100 Oxygen O2 Source Room air PD MEDICAL DECISION MAKING - ED course Complexity details: considered differential, d/w patient ED course: 34-year-old male with a left otitis externa. Will place on Ciprodex. We will have him follow-up with his doctor for further care. No otitis media. Otherwise normal exam. Normal oropharynx. No lymphadenopathy. No cellulitis. Patient counseled regarding signs and symptoms for which I believe and urgent re-evaluation would be necessary. Patient with good understanding of and agreement to plan and is comfortable going home at this time This document was made in part using voice recognition software. While efforts are made to proofread this document, sound alike and grammatical errors may occur. Departure - Departure Disposition: 01 Home, Self Care Clinical Impression: Otitis externa Qualifiers: Otitis externa type: unspecified type Chronicity: acute Laterality: left Qualified Code(s): H60.502 - Unspecified acute noninfective otitis externa, left ear Condition: Good Instructions: ED Otitis Externa Follow-Up: Caitlin Martinez PA [Primary Care Provider] - Within 1 week Prescriptions: Ciproflox/Dexameth Otic Drops [Ciprodex] 4 drops OT BID 7 Days #1 bottle Comments: Use the antibiotics drops as prescribed. Return if you worsen. Discharge Date/Time: 08/15/20 19:37
== END 2020-08-15 19:37 | disposition home or self-care (01) ==
LOC: ED 19:09
DX: H60.502 Unspecified acute noninfective otitis externa, left ear (principal)
CPT/HCPCS: 99282; 99284

== ENCOUNTER 2020-10-16 08:48 | Outpatient (CLI) | payer MEDICAID ==
--- NOTE | 2020-10-16 09:09 | SLEEP CARE CONSULTATION ---
Information from patient questionnaire entered by Lilibeth Dodson. I have reviewed and concur with the information entered by Lilibeth Dodson. This document represents the service I personally performed and the decisions made by , Kendra Lombardo ARNP. History of Present Illness Service Date and Time: 10/16/2020 0848 Previous diagnosis: Very Severe, Obstructive Sleep Apnea-Hypopnea Syndrome AHI: 81.9 (in 2018) Reason for follow up: three month (with pressure change) Equipment type: CPAP Equipment obtained from: Other ([employer] - getting supplies as needed) Mask style: Nasal pillows Backup mask available: No (will keep old mask when replaced) Last cushion change: August Prior sleep studies: Yes Year and Where: 2018 - [facility] in [place], [place] Type of Sleep Study: Home sleep study HPI additional information: EFREN SANZ was diagnosed to have very severe, AHI 81.9, obstructive sleep apnea-hypopnea syndrome and returned today for CPAP therapy three month pressure change follow-up. CPAP Compliance Data - Data Reviewed with Patient Average duration of nightly device use: 8 hours 7 minutes Compliance rate %: 87 Current pressure setting (cmH2O): 12-16 Average residual AHI: 0.2 Central apnea: 0.0 Obstructive apnea: 0.1 Average large leak: 3.0 L/min Subjective Patient concerns: reports: dry mouth, nose, throat (dry mouth). denies: aerophagia, mask discomfort, air blowing in eyes, mask leak noise, condensation in mask/hose, nasal congestion, epistaxis, other Observed to snore while using device: No Current pressure setting perceived as: comfortable On therapy, patient: reports: sleeping better, awakening more refreshed, being more awake and alert during the day, more rested overall. denies: drowsiness while driving Initial [place] Sleepiness Scale score: 8 (in 2020) Current [place] Sleepiness Scale score: 6 Allergies and Home Medications Home medication list reviewed: Yes (no new meds) Review of Systems Review of systems same as previous: Yes (no changes) Physical Exam Heart Rate: 75 O2 Saturation: 98 Height: 6 ft Weight: 324 lb Body Mass Index: 43.9 BMI Classification: Morbidly Obese Impression and Plan 1. Obstructive Sleep Apnea-Hypopnea Syndrome, very severe, with good treatment compliance and excellent apnea control. On CPAP therapy, the patient has better sleep quality and is more rested overall. He has been having mouth dryness. His current humidity setting is at 2. I advised him to increase his humidity setting to get more moisture and reduce dryness. Oral dryness can be reduced by ad justing humidity setting higher or heated hose lower or by adjusting both settings. Patient is trying to lose weight. Currently patients BMI is 43.9. Obesity increases the risk of apnea, CPAP pressure requirements and overall health risks especially cardiovascular and diabetes. Thus patient is advised to continue to lose weight. Weight loss can be done with reducing portion size, reducing refined foods and balancing content with vegetables, fruit and whole grain foods. Patient's apnea severity and rationale for treatment to reduce apnea, improve sleep quality and reduce cardiovascular and cerebrovascular events was reviewed. * Continue auto CPAP pressure at 12-16 cmH2O * Notify me if snoring with mask or feeling that the pressure is too much or too little * Continue to try to lose weight * Call this office if any problems using CPAP * Return for follow up in 6 months, or sooner if concerns arise Counseling Topics: Spare mask, Weight loss health impact Visit Type: In Office Time Spent with Patient (minutes): 14 Provider Statement: I spent 100% of the Face to Face Visit with the patient with greater than 50% spent counseling the patient and coordination of care.
== END 2020-10-16 08:49 | disposition home or self-care (01) ==
LOC: SC 08:48
PROVIDERS: ATTEND Nurse Practitioner Family
DX: G47.33 Obstructive sleep apnea (adult) (pediatric) (principal); E66.01 Morbid (severe) obesity due to excess calories; Z68.41 Body mass index [BMI] 40.0-44.9, adult
CPT/HCPCS: 99212

== ENCOUNTER 2021-03-02 08:00 | Outpatient (CLI) | payer MEDICAID ==
[2021-03-02 18:18] LABS: BASOPHILS # (AUTO) 0.1 10^3/uL (0.0-0.1); EOSINOPHILS # (AUTO) 0.2 10^3/uL (0.0-0.7); EOSINOPHILS % (AUTO) 2.9 %; HCT - HEMATOCRIT 45.1 % (42.0-52.0); MEAN CORPUSCULAR HEMOGLOBIN 29.2 pg (27.0-31.0); MEAN CORPUSCULAR HGB CONC 33.3 g/dL (32.0-36.0); MEAN CORPUSCULAR VOLUME 87.7 fL (80.0-94.0); MONOCYTES # (AUTO) 0.3 10^3/uL (0.0-1.0); MONOCYTES % (AUTO) 6.2 %; NEUTROPHILS # (AUTO) 2.6 10^3/uL (1.5-6.6); NEUTROPHILS % (AUTO) 50.7 %; PLT - PLATELET COUNT 223 10^3/uL (130-450); RED BLOOD COUNT 5.14 10^6/uL (4.70-6.10); RED CELL DISTRIBUTION WIDTH 12.7 % (12.0-15.0); WHITE BLOOD COUNT 5.2 x10^3/uL (4.8-10.8)
[2021-03-02 18:21] LABS: BILIRUBIN,URINE NEGATIVE (NEGATIVE); GLUCOSE, URINE (UA) NEGATIVE (NEGATIVE); KETONES,URINE (UA) NEGATIVE (NEGATIVE); LEUKOCYTE ESTERASE, URINE TRACE (NEGATIVE); NITRITE,URINE NEGATIVE (NEGATIVE); OCCULT BLOOD,URINE NEGATIVE (NEGATIVE); PH,URINE 5.5 PH (5.0-7.5); PROTEIN,URINE NEGATIVE (NEGATIVE); UROBILINOGEN,URINE 0.2 (NORMAL) E.U./dL (NORMAL)
[2021-03-02 18:46] LABS: ALBUMIN 4.4 g/dL (3.2-5.5); ALBUMIN/GLOBULIN RATIO 1.4 (1.0-2.2); ALKALINE PHOSPHATASE 70 IU/L (42-121); ALT ALANINE AMINOTRANSFERASE 104 IU/L (10-60); AST ASPARTATE AMINOTRANSFERASE 45 IU/L (10-42); BUN - BLOOD UREA NITROGEN 17 mg/dL (6-20); GFR - MDRD 86 (>89); TOTAL PROTEIN 7.6 g/dL (6.7-8.2)
[2021-03-02 18:50] LABS: THYROID STIMULATING HORMONE 1.69 uIU/mL (0.34-5.60)
[2021-03-02 18:51] LABS: AMORPHOUS SEDIMENT,UR Marked /LPF; BACTERIA,URINE Rare /HPF (None Seen); CLARITY,URINE CLOUDY (CLEAR); CRYSTALS,URINE 3-5 Calcium Oxalate /LPF; RBC,URINE 0-5 /HPF (0-5); SQUAMOUS EPITHELIAL CELL,UR RARE Squamous (<= Few); WBC,URINE 0-3 /HPF (0-3)
[2021-03-02 18:52] LABS: FREE T4 (FREE THYROXINE) 0.77 ng/dL (0.58-1.64)
[2021-03-02 18:53] LABS: CALCIUM 9.4 mg/dL (8.5-10.3); CARBON DIOXIDE - CO2 25 mmol/L (21-32); CHLORIDE 108 mmol/L (101-111); GLUCOSE 114 mg/dL (70-100); POTASSIUM 4.1 mmol/L (3.5-5.0); SODIUM 142 mmol/L (135-145)
[2021-03-02 19:35] LABS: CRP - C-REACTIVE PROTEIN < 1.0 mg/dL (0-1.0)
[2021-03-02 20:21] LABS: ESTIMATED AVERAGE GLUCOSE 111 mg/dL (70-100); HEMOGLOBIN A1c% 5.5 % (4.27-6.07)
== END 2021-03-02 23:59 | disposition home or self-care (01) ==
LOC: LAB.WCP 08:00
PROVIDERS: ATTEND Nurse Practitioner
DX: R53.83 Other fatigue (principal); E66.01 Morbid (severe) obesity due to excess calories; R06.02 Shortness of breath; R55 Syncope and collapse
CPT/HCPCS: 36415; 80053; 81001; 82607; 83036; 84403; 84439; 84443; 85025; 85651; 86140; 87086

== ENCOUNTER 2021-05-28 09:47 | Outpatient (CLI) | payer MEDICAID | END 2021-05-28 23:59 | disposition home or self-care (01) | LOC: LAB.WCP 09:47 | PROVIDERS: ATTEND Nurse Practitioner | DX: E29.1 Testicular hypofunction (principal) | CPT/HCPCS: 36415; 84403 ==

== ENCOUNTER 2021-07-26 08:00 | Outpatient (CLI) | payer MEDICAID | END 2021-07-26 23:59 | LOC: LAB.N 08:00 | PROVIDERS: ATTEND Family Medicine | DX: R05.9 Cough, unspecified (principal); R50.9 Fever, unspecified; Z20.822 Contact with and (suspected) exposure to COVID-19 | CPT/HCPCS: 87275; 87276 ==